=== PATIENT | female | born 1985 | race Asian ===

== ENCOUNTER 2016-11-09 00:54 | Inpatient (IN) | payer BC ==
[2016-11-09] VITALS (11 sets, daily range): BP systolic 117–138; BP diastolic 64–94
[~2016-11-09] VITALS: Ht 160 cm; Wt 74.0 kg
[~2016-11-09 00:54] MED LIST: Feosol PO; K-Dur PO; Motrin PO; Natalcare Rx,Pramile PO; Percocet 5/325,Endoc PO
[2016-11-09 01:57] LABS: BASOPHIL COUNT 0.1 K/uL (0-0.1); EOSINOPHIL (%) 0.8 % (0-5); EOSINOPHIL COUNT 0.1 K/uL (0-0.3); HEMATOCRIT 33.3 % (36.0-46.0); IMMATURE GRANULOCYTE COUNT 0.3 K/uL; INSTRUMENT ABS NEUTROPHIL CT 11.5 K/uL; MCH 30.9 PG (29.0-34.0); MCHC 35.7 G/DL (30.0-36.0); MCV 86.5 FL (83-99); MEAN PLAT.VOLUME 10.5 uM^3 (9.5-12.4); MONOCYTE (%) 7.8 % (3-12); MONOCYTE COUNT 1.2 K/uL (0-0.8); NEUTROPHIL (%) 76.2 % (45-76); NEUTROPHIL COUNT 11.5 K/uL (1.8-6.4); PLATELET COUNT 194 K/uL (156-360); RBC DIS.WIDTH-CV 15.9 % (11.8-14.6); RBC DIS.WIDTH-SD 49.3 % (39-53); RED BLOOD COUNT 3.85 M/uL (3.80-5.20); WHITE BLOOD COUNT 15.2 K/uL (4.1-10.2)
[2016-11-10 06:44] LABS: BASOPHIL COUNT 0.1 K/uL (0-0.1); EOSINOPHIL (%) 1.6 % (0-5); EOSINOPHIL COUNT 0.2 K/uL (0-0.3); HEMATOCRIT 34.6 % (36.0-46.0); IMMATURE GRANULOCYTE (%) 1.7 % (0.0-0.7); IMMATURE GRANULOCYTE COUNT 0.2 K/uL; INSTRUMENT ABS NEUTROPHIL CT 9.9 K/uL; LYMPHOCYTE COUNT 2.7 K/uL (1.0-2.8); MCH 31.5 PG (29.0-34.0); MCHC 36.1 G/DL (30.0-36.0); MCV 87.2 FL (83-99); MEAN PLAT.VOLUME 10.3 uM^3 (9.5-12.4); MONOCYTE (%) 5.6 % (3-12); MONOCYTE COUNT 0.8 K/uL (0-0.8); NEUTROPHIL (%) 71.4 % (45-76); NEUTROPHIL COUNT 9.9 K/uL (1.8-6.4); PLATELET COUNT 192 K/uL (156-360); RBC DIS.WIDTH-CV 16.1 % (11.8-14.6); RED BLOOD COUNT 3.97 M/uL (3.80-5.20); WHITE BLOOD COUNT 13.9 K/uL (4.1-10.2)
[2016-11-10 08:09] VITALS: BP 120/83
[2016-11-11 07:30] VITALS: BP 108/85
[2016-11-11] MEDS ORDERED: IBUPROFEN800 MG PO (09:00)
[2016-11-11] MEDS ORDERED: SPRINTEC1 EACH PO (09:01)
== END 2016-11-11 14:46 | disposition home or self-care (01) | DRG 775 ==
LOC: LDRP-OP 00:54 → 2WEST 00:55
PROVIDERS: Advanced Practice Midwife
DX: O16.4 Unspecified maternal hypertension, complicating childbirth (principal); Z68.30 Body mass index [BMI] 30.0-30.9, adult; E66.9 Obesity, unspecified; O99.824 Streptococcus B carrier state complicating childbirth; O99.214 Obesity complicating childbirth; Z3A.39 39 weeks gestation of pregnancy; Z37.0 Single live birth; O34.211 Maternal care for low transverse scar from previous cesarean delivery
CPT/HCPCS: 85025; 86900; 86901; J0290; J7050; J7120